=== PATIENT | male | born 1985 | race Caucasian/White ===

== ENCOUNTER 2022-01-24 07:10 | Outpatient (REF) | payer BC, SELFPAY ==
[2022-01-24 12:12] LABS: Appearance Urine CLOUDY; Color Urine YELLOW; Glucose Urine UA NEG (NEG); Leukocyte Esterase Urine NEG (NEG); Nitrite Urine NEG (NEG); Specific Gravity - Urine >= 1.030 (1.005-1.025); Urine Blood NEG (NEG); Urine Ketones NEG (NEG); Urine Protein NEG (NEG-TRACE)
[2022-01-24 12:40] LABS: Alanine Aminotransferase 35 U/L (0-40); Albumin Level 4.5 g/dL (3.5-5.0); Alkaline Phosphatase 62 U/L (39-117); Anion Gap 12 (12-20); Aspartate Amino Transferase 24 U/L (5-37); Bilirubin Total 0.5 mg/dL (0.0-1.0); Blood Urea Nitrogen 16 mg/dL (9-16); Calcium 9.8 mg/dL (8.4-10.2); Carbon Dioxide 26 mmol/L (22-29); Chloride 107 mmol/L (96-108); Cholesterol 235 mg/dL; Estimated Glomerular Filt Rate > 60; Glucose Fasting 99 mg/dL (60-99); HDL Cholesterol 46 mg/dL; LDL Cholesterol Calculated 171 mg/dl; Sodium 140 mmol/L (135-145); Total Protein 7.5 g/dL (6.5-8.0); Triglycerides 94 mg/dL
[2022-01-24 12:42] LABS: TSH reflex Free T4 1.54 uIU/mL (0.32-4.0)
== END 2022-01-24 07:11 | disposition home or self-care (01) ==
LOC: HO.HMGCLDS 07:10
PROVIDERS: Visit Provider Nurse Practitioner Family
DX: Z00.00 Encounter for general adult medical examination without abnormal findings (principal)
CPT/HCPCS: 36415; 80053; 80061; 81003; 84443

== ENCOUNTER 2024-12-12 09:09 | Outpatient (AMB) | payer BC, SELFPAY ==
--- NOTE | 2024-12-12 09:30 | A.OFFPC_ITS ---
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 Accompanied by: Self / Same As Patient Allergies No Known Allergies Allergy (Verified 12/12/24 09:33) Tobacco use date assessed: 12/12/24 Dental Screening Dental Screen Date: 12/12/24 Did you have a dental visit in the last 12 months?: Yes Did you have a dental problem in the last 6 months where you did not have access to dental care?: No Was dental information given to patient?: Patient has dentist COUNT INCLUDES [facility] Surgical History (Updated 12/12/24 @ 09:36 by Jason Almazan CMA) H/O removal of cyst Family History (Updated 12/12/24 @ 09:37 by Jsaon Almazan CMA) Mother Diabetes Ovarian cancer Father No problems noted. Social History Housing: House Patient Tobacco Use Status: Former Tobacco user Years Smoked: quit 9 years ago e-Cigarette/Vaping Use: Never Used service: No Current occupational status: employed Current occupation: [employer] Current occupational exposures/hazards: Yes Cognitive needs: No Hearing needs: No Vision needs: No Questionnaire PHQ-9 Over the last 2 weeks, how often have you been bothered by any of the following problems? 1. Little interest or pleasure in doing things: not at all 2. Feeling down, depressed, or hopeless: not at all 3. Trouble falling or staying asleep, or sleeping too much: not at all 4. Feeling tired or having little energy: not at all 5. Poor appetite or overeating: not at all 6. Feeling bad about yourself - or that you are a failure or have let yourself or your family down: not at all 7. Trouble concentrating on things, such as reading the newspaper or watching television: not at all 8. Moving or speaking so slowly that other people could have noticed. Or the opposite - being so fidgety or restless that you have been moving around a lot more than usual: not at all 9. Thoughts that you would be better off or of hurting yourself in some way: not at all Total score: 0 Depression Screening Interpretation: Negative Depression Screening Done: Yes 42955 - PHQ-9 Billing: Yes Source: Developed by Drs. Horace Pruitt, Cindi Alonzo, Chaz Rose and colleagues, with an educational consuelo from [employer]. Thrive Questionnaire Date Thrive assessed: 12/12/24 I am a: Patient What is your living situation today?: I have a steady place to live Within the past 12 months, did the food you bought not last and you didn't have the money to get more?: I choose not to answer this question Within the past 12 months, did you worry whether your food would run out before you got money to buy more?: I choose not to answer this question Do you have trouble paying for medicines?: I choose not to answer this question Do you have trouble getting transportation to medical appointments?: No Do you have trouble paying your heating and electricity bill?: Yes Do you have trouble taking care of your child, family member or friend?: No Do you have trouble with day-to-day activities such as bathing, preparing meals, shopping, managing finances, etc.?: No Are you currently unemployed and looking for a job?: No Are you interested in more education?: No Please select the resources that you would like help with: None Currently or been in a relationship where the following occur: No concerns reported THRIVE Score: 1 AUDIT C Alcohol Use Questionnaire (AUDIT-C) 1. How often do you have a drink containing alcohol?: 2-3 times a week 2. How many drinks containing alcohol do you have on a typical day when you are drinking?: 3 or 4 3. How often do you have six or more drinks on one occasion?: Less than monthly Total Score: 5 Score Reviewed/Action Taken: Yes KIRBY-7 AMB Questionnaire KIRBY-7 Date KIRBY - 7 assessed: 12/12/24 Feeling nervous, anxious, or on edge: 1 = Several days Not being able to stop or control worryin = Several days Worrying too much about different things: 1 = Several days Trouble relaxin = Several days Being so restless that it is hard to sit still: 1 = Several days Becoming easily annoyed or irritable: 1 = Several days Feeling afraid as if something awful might happen: 1 = Several days Total KIRBY-7 score (0-4 normal; 5-9 mild; 10-14 moderate; 15-21 severe): 7 Source: Developed by Drs. Horace Pruitt, Cindi Alonzo, Chaz Rose and colleagues, with an educational consuelo from [employer]. KIRBY-7 Assessment Billing KIRBY-7 Assessment Tool: KIRBY-7 Assessment 74039 Physical exam (Primary Care) Vital Signs: Last Vital Signs Temp 98.0 F 12/12/24 09:33 Pulse 76 12/12/24 09:33 BP 130/80 12/12/24 09:33 Pulse Ox 99 12/12/24 09:33 BMI result Body Mass Index 29.0 Tobacco/Smoking Status: Tobacco use Status Tobacco use date assessed 12/12/24 12/12/24 09:39 Patient Tobacco Use Status Former Tobacco user 12/12/24 09:33 e-Cigarette/Vaping Use Never Used 12/12/24 09:33 PHQ-9: PHQ-9 Score PHQ-9: Total score 0 12/12/24 09:39 Depression Screening Interpretation: Negative Thrive Assessment: Date of Thrive Assessment Date Thrive assessed 12/12/24 12/12/24 09:39 Currently or been in a relationship where the following occur: No concerns reported Coding Level of Care Code Est Pt Level 3 (15232) Diagnoses Right ankle pain M25.571 Additional Codes KIRBY-7 Assessment Billing - KIRBY-7 Assessment Tool: KIRBY-7 Assessment 13616 ([id number]) PHQ-9 - 46801 - PHQ-9 Billing: Yes ([id number]) Assessment & Plan Assessment & Plan (1) Right ankle pain: Code(s): M25.571 - Pain in right ankle and joints of right foot Category: Medical Plan: . Plan . Orders: Orders XR ankle RT 2V Today M25.571 - Pain in right ankle and joints of right foot
[2024-12-12 09:33] VITALS: BP 130/80; PULSE 76; TEMP 36.7; O2SAT 99; BMI 29.0
== END 2024-12-12 10:14 | disposition home or self-care (01) ==
PROVIDERS: PCP Nurse Practitioner Family; Visit Provider Nurse Practitioner Family
DX: M25.571 Pain in right ankle and joints of right foot (principal)

== ENCOUNTER 2024-12-12 09:09 | Outpatient (REF) | payer BC, SELFPAY ==
--- NOTE | ~2024-12-12 | XR_ITS ---
EXAMINATION: XR ANKLE, RIGHT CLINICAL INFORMATION: M25.571 - Pain in right ankle and joints of right foot COMPARISON: None available. TECHNIQUE: AP, lateral, and mortise views of the right ankle. FINDINGS: No acute cortical disruption or malalignment. No lytic or blastic lesions. No metallic or radiopaque foreign body. Small exostosis at the Achilles tendon insertion. No gross joint effusion. No subcutaneous emphysema. XR/XR ankle RT 2V IMPRESSION: Mild enthesopathy, Achilles tendon insertion. Electronically signed by: Westley Boles MD 12/12/2024 03:04 PM PABLO DINH
== END 2024-12-12 09:10 | disposition home or self-care (01) ==
LOC: HO.HMGCX 09:09
PROVIDERS: PCP Nurse Practitioner Family; Visit Provider Nurse Practitioner Family
DX: M25.571 Pain in right ankle and joints of right foot (principal)
CPT/HCPCS: 73600; 96127

== ENCOUNTER → 2024-12-12 10:08 | Outpatient (BNV) | payer BC, SELFPAY | PROVIDERS: PCP Nurse Practitioner Family; Visit Provider Radiology Diagnostic Radiology | DX: M25.571 Pain in right ankle and joints of right foot (principal) | CPT/HCPCS: 73600 ==

== ENCOUNTER 2025-06-30 13:58 | Outpatient (AMB) | payer OTHER, SELFPAY ==
[2025-06-30 14:07] VITALS: BP 130/80; PULSE 84; RESP 16; O2SAT 100; BMI 28.4
--- NOTE | 2025-06-30 14:07 | MHC.PC.OV ---
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 Accompanied by: Self / Same As Patient Allergies No Known Allergies Allergy (Verified 06/30/25 14:08) Medication List - Last Reconciled 06/30/25 by LYNNE Lemon famotidine (Pepcid AC) 20 mg PO DAILY 90 days Tobacco use date assessed: 06/30/25 Dental Screening Dental Screen Date: 06/30/25 Did you have a dental visit in the last 12 months?: Yes Did you have a dental problem in the last 6 months where you did not have access to dental care?: No Was dental information given to patient?: Patient has dentist HPI Annual PE/inactive insurance, check with [facility] HPI Details History of Present Illness The patient is a 39-year-old male presenting with a wellness check and preventative care discussion. He denies experiencing any chest pain, shortness of breath, abdominal pain, blood in stool, constipation, or diarrhea. He also denies any suicidal or homicidal ideation. The patient works with heavy equipment, often in tight spaces, which occasionally results in minor musculoskeletal aches and pains. Health Maintenance - Recommendation for structured routine and fasting labs Social History - Employment: Works with heavy equipment in tight spaces, leading to occasional minor musculoskeletal aches and pains Review of Systems - Cardiovascular: Denies chest pain or shortness of breath - Gastrointestinal: Denies abdominal pain, blood in stool, constipation, or diarrhea - Psychiatric: Denies suicidal or homicidal ideation Physical Exam General: Cooperative, healthy appearing, comfortable, no acute distress and well developed Orientation: Patient oriented x3 Limitations: No limitations Head: Normal to inspection Ears: Hearing grossly normal bilaterally Nose: Normal external nose present Face and sinus: Normal facial exam Eyes: Appearance normal, both eyes and all related structures Neck: Normal visual inspection and Yes full ROM Respiratory: Normal respiratory effort and able to speak in complete sentences. Clear to auscultation bilaterally Cardiovascular: Regular rate and rhythm. Normal S1 and S2 GI: Normal to inspection. Soft to palpation and nontender : testicles without masses/lesions and no hernias appreciated Skin: No rashes or lesions noted Neuro: Patient oriented x3 Extremities: Normal to inspection Results Plan Discussion Notes I discussed the importance of establishing a structured routine and recommended that the patient undergo fasting laboratory tests in the near future. Patient Instructions - Establish a structured routine as discussed. - Schedule and complete fasting laboratory tests soon. [facility] Surgical History H/O removal of cyst Family History Mother Diabetes Ovarian cancer Father No problems noted. Social History Housing: House Patient Tobacco Use Status: Former Tobacco user Years Smoked: quit 9 years ago e-Cigarette/Vaping Use: Never Used service: No Current occupational status: employed Current occupation: [employer] Current occupational exposures/hazards: Yes Cognitive needs: No Hearing needs: No Vision needs: No Questionnaire PHQ-9 Over the last 2 weeks, how often have you been bothered by any of the following problems? 1. Little interest or pleasure in doing things: not at all 2. Feeling down, depressed, or hopeless: not at all 3. Trouble falling or staying asleep, or sleeping too much: not at all 4. Feeling tired or having little energy: not at all 5. Poor appetite or overeating: not at all 6. Feeling bad about yourself - or that you are a failure or have let yourself or your family down: not at all 7. Trouble concentrating on things, such as reading the newspaper or watching television: not at all 8. Moving or speaking so slowly that other people could have noticed. Or the opposite - being so fidgety or restless that you have been moving around a lot more than usual: not at all 9. Thoughts that you would be better off or of hurting yourself in some way: not at all Total score: 0 Depression Screening Interpretation: Negative Depression Screening Done: Yes 01366 - PHQ-9 Billing: Yes Source: Developed by Drs. Horace Pruitt, Cindi Alonzo, Chaz Rose and colleagues, with an educational consuelo from [employer]. Thrive Questionnaire Date Thrive assessed: 12/12/24 I am a: Patient What is your living situation today?: I have a steady place to live Within the past 12 months, did the food you bought not last and you didn't have the money to get more?: I choose not to answer this question Within the past 12 months, did you worry whether your food would run out before you got money to buy more?: I choose not to answer this question Do you have trouble paying for medicines?: I choose not to answer this question Do you have trouble getting transportation to medical appointments?: No Do you have trouble paying your heating and electricity bill?: Yes Do you have trouble taking care of your child, family member or friend?: No Do you have trouble with day-to-day activities such as bathing, preparing meals, shopping, managing finances, etc.?: No Are you currently unemployed and looking for a job?: No Are you interested in more education?: No Please select the resources that you would like help with: None Currently or been in a relationship where the following occur: No concerns reported THRIVE Score: 1 KIRBY-7 AMB Questionnaire KIRBY-7 Date KIRBY - 7 assessed: 06/30/25 Feeling nervous, anxious, or on edge: 0 = Not at all Not being able to stop or control worryin = Not at all Worrying too much about different things: 0 = Not at all Trouble relaxin = Not at all Being so restless that it is hard to sit still: 0 = Not at all Becoming easily annoyed or irritable: 0 = Not at all Feeling afraid as if something awful might happen: 0 = Not at all Total KIRBY-7 score (0-4 normal; 5-9 mild; 10-14 moderate; 15-21 severe): 0 Source: Developed by Drs. Horace Pruitt, Cindi Alonzo, Chaz Rose and colleagues, with an educational consuelo from [employer]. KIRBY-7 Assessment Billing KIRBY-7 Assessment Tool: KIRBY-7 Assessment 50303 Physical exam (Primary Care) Vital Signs: Last Vital Signs Pulse 84 06/30/25 14:07 Resp 16 06/30/25 14:07 BP 130/80 06/30/25 14:07 Pulse Ox 100 06/30/25 14:07 Oxygen Delivery Method Room Air 06/30/25 14:07 BMI result Body Mass Index 28.4 Tobacco/Smoking Status: Tobacco use Status Tobacco use date assessed 06/30/25 06/30/25 14:11 Patient Tobacco Use Status Former Tobacco user 06/30/25 14:08 e-Cigarette/Vaping Use Never Used 06/30/25 14:08 PHQ-9: PHQ-9 Score PHQ-9: Total score 0 06/30/25 14:11 Depression Screening Interpretation: Negative Thrive Assessment: Date of Thrive Assessment Date Thrive assessed 12/12/24 06/30/25 14:08 Currently or been in a relationship where the following occur: No concerns reported Coding Level of Care Code Est Pt Prev Care 18-39y(36231) Diagnoses Physical exam Z00.00 Exposure to lead Z77.011 Additional Codes KIRBY-7 Assessment Billing - IKRBY-7 Assessment Tool: KIRBY-7 Assessment 68264 ([id number]) PHQ-9 - 93312 - PHQ-9 Billing: Yes ([id number]) Assessment & Plan Assessment & Plan (1) Physical exam: Code(s): Z00.00 - Encounter for general adult medical examination without abnormal findings Category: Medical (2) Exposure to lead: Code(s): Z77.011 - Contact with and (suspected) exposure to lead Category: Medical Plan . Orders: Orders Complete Blood Count Auto Diff Today Z00.00 - Encounter for general adult medical examination without abnormal findings Comprehensive [place]. Panel Fast Today Z00.00 - Encounter for general adult medical examination without abnormal findings TSH reflex Free T4 Today Z00.00 - Encounter for general adult medical examination without abnormal findings Venous Lead Today Z00.00 - Encounter for general adult medical examination without abnormal findings, Z77.011 - Contact with and (suspected) exposure to lead UA CC w/rflx Micro + Cult Today Z00.00 - Encounter for general adult medical examination without abnormal findings Lipid Panel Today Z00.00 - Encounter for general adult medical examination without abnormal findings Heavy Metals Screen Blood Today Z00.00 - Encounter for general adult medical examination without abnormal findings
== END 2025-06-30 16:34 | disposition home or self-care (01) ==
PROVIDERS: PCP Nurse Practitioner Family; Visit Provider Nurse Practitioner Family
DX: Z00.00 Encounter for general adult medical examination without abnormal findings (principal); Z77.011 Contact with and (suspected) exposure to lead

== ENCOUNTER → 2025-06-30 13:58 | Outpatient (BNVA) | payer OTHER, SELFPAY | PROVIDERS: PCP Nurse Practitioner Family; Visit Provider Nurse Practitioner Family | DX: Z00.00 Encounter for general adult medical examination without abnormal findings (principal); Z77.011 Contact with and (suspected) exposure to lead | CPT/HCPCS: 96127; 99395 ==

== ENCOUNTER 2025-07-01 06:59 | Outpatient (REF) | payer OTHER, SELFPAY ==
[2025-07-01 10:08] LABS: MANUAL DIFF FLAG NO
[2025-07-01 10:12] LABS: Hematocrit 44.9 % (42.0-52.0); Hemoglobin 14.8 g/dl (14.0-18.0); Imm Gran Abs Auto 0.01 X10*3/uL (0.00-0.03); Imm Gran Pct Auto 0.2 % (0.0-0.4); Lymphocytes Absolute Auto 1.3 X10*3/uL (1.2-4.9); Mean Corpuscular HGB Conc 33.0 g/dl (31.0-36.0); Mean Corpuscular Hemoglobin 28.1 pg (27.0-33.0); Mean Corpuscular Volume 85.4 fL (80.0-98.0); NRBC Abs Auto 0.000 X10*3/uL (0.0-0.012); NRBC Pct Auto 0.0 /100WBC (0.0-0.2); Platelet Count 193 X10*3/uL (160-400); Red Blood Count 5.26 X10*6/uL (4.60-5.80); White Blood Count 4.5 X10*3/uL (4.8-10.8)
[2025-07-01 10:14] LABS: Appearance Urine Clear; Glucose Urine UA Negative (Negative); PH 7.5 (5.0-9.0); Specific Gravity - Urine 1.020 (1.005-1.025)
[2025-07-01 10:38] LABS: Alanine Aminotransferase 27 U/L (0-40); Albumin Level 4.4 g/dL (3.5-5.0); Alkaline Phosphatase 70 U/L (39-117); Anion Gap 12 (12-20); Aspartate Amino Transferase 26 U/L (5-37); Blood Urea Nitrogen 10 mg/dL (9-16); Calcium 9.0 mg/dL (8.4-10.2); Carbon Dioxide 26 mmol/L (22-29); Chloride 107 mmol/L (96-108); Cholesterol 215 mg/dL (<200); Estimated Glomerular Filt Rate > 60; HDL Cholesterol 41 mg/dL (>40); Potassium 4.5 mmol/L (3.3-5.1); Sodium 140 mmol/L (135-145); Total Protein 7.0 g/dL (6.5-8.0); Triglycerides 167 mg/dL (<150)
[2025-07-03 16:03] LABS: Venous Lead <1.0 mcg/dL (<3.5)
[2025-07-04 22:29] LABS: Arsenic, Blood <3 mcg/L (<23); Lead, Blood <1.0 mcg/dL (<3.5); Mercury, Blood <4 mcg/L (<=10)
== END 2025-07-01 07:00 | disposition home or self-care (01) ==
LOC: HO.HMGCLDS 06:59
PROVIDERS: PCP Nurse Practitioner Family; Visit Provider Nurse Practitioner Family
DX: Z00.00 Encounter for general adult medical examination without abnormal findings (principal); Z77.011 Contact with and (suspected) exposure to lead
CPT/HCPCS: 36415; 80053; 80061; 81003; 82175; 83655; 83825; 84443; 85025